=== PATIENT | male | born 1975 | race Caucasian/White ===

== ENCOUNTER 2021-03-12 07:30 | Outpatient (CLI) | payer SELFPAY ==
--- NOTE | ~2021-03-12 | US_ITS ---
EXAMINATION: US abdomen limited DATE: 03/12/2021 07:50 INDICATION: Right upper quadrant pain TECHNIQUE: Multiple grayscale and Doppler ultrasound images of the abdomen were obtained. COMPARISON: None available FINDINGS: The head and body of the pancreas are normal. The pancreatic tail is obscured by bowel gas. The liver is normal with normal echogenicity and echotexture. No surface nodularity. Normal hepatope gely flow in the main portal vein. The gallbladder is normal with no abnormal wall thickening, pericho lecystic fluid or stones. The normal common bile duct measures 2 mm. There was no sonographic Forrest sign. IMPRESSION: 1. Normal sonographic study of the gallbladder. Reviewed, dictated and finalized at location A.
== END 2021-03-12 07:31 | disposition home or self-care (01) ==
PROVIDERS: PCP Family Medicine; Visit Provider Family Medicine
DX: E80.6 Other disorders of bilirubin metabolism (principal); R17 Unspecified jaundice
CPT/HCPCS: 76705

== ENCOUNTER 2022-04-29 01:21 | Day surgery (SDC) | payer SELFPAY ==
[2022-04-19 15:30] VITALS: BMI 22.4
[2022-04-29 07:41] VITALS: BP 106/75; PULSE 63; RESP 20; TEMP 35.5; O2SAT 100; BMI 22.1
[2022-04-29] MEDS: LACTATED RINGERS 1,000 ML 150 ML IV CONT (07:54)
--- NOTE | 2022-04-29 08:04 | P.PNAN_ITS ---
Anes - Initial Pre Proc Eval Procedure: Operation Date: 04/29/22 08:30 Proposed Procedures p Screening Colonoscopy - Silviano Painter MD Date/Time: 04/29/22 08:04 Surgeon: Silviano Painter MD Pre Op Diagnosis: neoplasm screening Patient Data Age: 46 Gender: M Height: 1.8 m Weight: 72 kg Last Vital Signs Temp 95.9 F L 04/29/22 07:41 Pulse 63 04/29/22 07:41 Resp 20 04/29/22 07:41 BP 106/75 04/29/22 07:41 Pulse Ox 100 04/29/22 07:41 Allergies Allergy/AdvReac Type Severity Reaction Status Date / Time No Known Allergies Allergy Mild Verified 04/29/22 07:40 Home Medications Medication Instructions Recorded Confirmed Type atorvastatin 10 mg tablet See Rx Instructions .Route 04/19/22 04/29/22 Rx .COMPLEX #90 tabs Patient hx anesthesia problems: none Family hx anesthesia problems: none Results Review: All pre-operative results and documents have been reviewed as part of the pre-o perative evaluation. [facility] Family History Family History Father Family history of elevated blood lipids Acute myocardial infarction Family history of coronary artery disease Social History Social History (Updated 02/18/22 @ 15:05 by Tosha Bailey MA) Smoking status: Never smoker Alcohol intake: current Alcohol use details: on occasion Substance use: never Substance use type: does not use Living arrangements: with family Gender identity (if verbalized by the patient): Male Spiritual care concerns: No Agree to blood products: Yes Anes - Eval Final PreProcedure Day of Procedure 04/29/22 08:04 Patient weight: normal Heart: regular rate and rhythm Lungs: clear to auscultation Airway: Mallampati scale Neurological: alert and oriented Last oral intake: >/= 8 hours ASA classification: II Emergent: no Anesthetic plan: proceed Anesthesia type and monitoring: general GIVS and standard monitoring Results Review: All pre-operative results and documents have been reviewed as part of the pre- operative evaluation. Informed Consent: The patient's anesthetic plan and its attendant risks and benefits were discussed with the patient/family/POA. Questions were solicited and answers provided to the satisfaction of the patient/family/POA.
--- NOTE | 2022-04-29 08:17 | PM.HPGS ---
History of Present Illness History of Present Illness Consent: Risks, benefits, and alternatives have been discussed and questions answered. Patient agrees to proceed with procedure. Chief complaint: neoplasm screening Narrative: Anibal Odom is a 46 year old male here for first screening colonoscopy Review of Systems Constitutional: Constitutional: Denies headache(s) and Denies weakness Eyes: Eyes: Denies blurry vision ENT: Reports Normal hearing present, Denies headache(s) and Denies neck pain Cardiovascular: Cardiovascular: Denies chest pain and Denies dyspnea Respiratory: Respiratory: Denies dyspnea Gastrointestinal: Gastrointestinal: Reports no additional gastrointestinal complaints Genitourinary: Genitourinary: Denies dysuria Musculoskeletal: Musculoskeletal: Denies neck pain Integumentary/Breasts: Skin/Breast: Denies dry skin Neurologic: Reports Normal hearing present, Denies headache(s) and Denies weakness Psychiatric: Psychiatric: Denies anxiety Endocrine: Endocrine: Denies change in body appearance Hematologic/Lymphatic: Hematologic/Lymphatic: Denies easy bleeding Allergic/Immunologic: Allergic/Immunologic: Denies urticaria [facility] Family History Family History Father Family history of elevated blood lipids Acute myocardial infarction Family history of coronary artery disease Social History Social History (Updated 02/18/22 @ 15:05 by Tosha Bailey MA) Smoking status: Never smoker Alcohol intake: current Alcohol use details: on occasion Substance use: never Substance use type: does not use Living arrangements: with family Gender identity (if verbalized by the patient): Male Spiritual care concerns: No Agree to blood products: Yes Meds Home Medications and Allergies Home Medications Medication Instructions Recorded Confirmed Type atorvastatin 10 mg tablet See Rx Instructions .Route 04/19/22 04/29/22 Rx .COMPLEX #90 tabs Allergies Allergy/AdvReac Type Severity Reaction Status Date / Time No Known Allergies Allergy Mild Verified 04/29/22 07:40 Vital Signs Vital Signs - 24 hr 04/29/22 07:41 Temperature 95.9 F L Pulse Rate 63 Respiratory Rate 20 Blood Pressure 106/75 Pulse Oximetry 100 Exam Const: General: comfortable and no acute distress HENMT: Face/Nose/Sinus: Normal nares present Eyes: General: appearance normal, both eyes and all related structures Neck: Neck: no JVD Resp: Auscultation: clear to auscultation bilaterally Cardio: Rate: regular rate Rhythm: regular rhythm GI: Inspection: non-distended GI Palp: Yes Soft to palpation Skin: General skin exam: normal color Neuro: General: gait normal Speech: normal speech Extrem: General: normal to inspection Psych: Mental Status: mental status grossly normal Assessment and Plan Assessment and plan (1) Screening for colon cancer: Code(s): Z12.11 - Encounter for screening for malignant neoplasm of colon Status: Acute Assessment and Plan: colonoscopy
[2022-04-29 08:39] VITALS: BP 95/62; PULSE 66; RESP 20; O2SAT 99
[2022-04-29 08:49] VITALS: BP 106/77; PULSE 64; RESP 20; O2SAT 100
[2022-04-29 08:59] VITALS: BP 106/74; PULSE 57; RESP 16; O2SAT 100
== END 2022-04-29 09:11 | disposition home or self-care (01) ==
PROVIDERS: PCP Family Medicine; Visit Provider Internal Medicine Gastroenterology
PROC: 0DJD8ZZ Inspection of Lower Intestinal Tract, Via Natural or Artificial Opening Endoscopic (ICD-10-PCS; CPT 45378; principal; 2022-04-29 08:30)
DX: Z12.11 Encounter for screening for malignant neoplasm of colon (principal)
CPT/HCPCS: 45378; J2704; J7120

== ENCOUNTER 2024-03-19 09:05 | Outpatient (CLI) | payer SELFPAY ==
--- NOTE | ~2024-03-19 | MR_ITS ---
EXAMINATION: MR lumbar spine wo con DATE: 03/19/2024 09:43 INDICATION: Low back pain. TECHNIQUE: Magnetic resonance imaging (MRI) of the lumbar spine was performed without intravenous con trast. Sequences included sagittal T2-weighted FSE, sagittal T2-weighted FS FSE, sagittal T1-weighted FSE, and axial T2-weighted FSE. COMPARISON: None FINDINGS: There is 3 degrees levocurvature of lumbar spine. Vertebral body heights are normal. L5 is a transitional segment. There is mildly decreased disc height at L3-L4. The distal spinal cord signal intensity is normal. The conus medullaris is at L1. The following disc levels are specifically discu ssed: L1-L2: The disc does not extend beyond the endplate margin. There is mild bilateral facet joint osteo arthritis. There is no neural foraminal stenosis. There is no central canal stenosis. L2-L3: The disc does not extend beyond the endplate margin. There is mild bilateral facet joint osteo arthritis. There is no neural foraminal stenosis. There is no central canal stenosis. L3-L4: The disc is bulging and has an annular fissure. There is mild bilateral facet joint osteoarthr itis. There is mild bilateral neural foraminal stenosis. There is mild central canal stenosis. L4-L5: The disc is bulging and has an annular fissure. There is mild bilateral facet joint osteoarthr itis. There is mild bilateral neural foraminal stenosis. There is mild central canal stenosis. L5-S1: The disc does not extend beyond the endplate margin. There is no facet joint hypertrophy. Ther e is no neural foraminal stenosis. There is no central canal stenosis. IMPRESSION: 1. Mild lumbar spondylosis. Reviewed, dictated and finalized at location A. IMPRESSION: 1. Mild lumbar spondylosis.
== END 2024-03-19 09:06 | disposition home or self-care (01) ==
PROVIDERS: PCP Family Medicine; Visit Provider Family Medicine
DX: M47.896 Other spondylosis, lumbar region (principal)
CPT/HCPCS: 72148

== ENCOUNTER 2024-06-06 15:30 | Outpatient (RCR) | payer SELFPAY ==
--- NOTE | 2024-04-02 16:10 | OPREHPOC ---
Outpatient Therapy Plan of Care This is a Multidisciplinary Plan of Care that may contain components documented by all disciplines (PT, OT, and ST.) PT Problem 1 PT Problem #1 Knowledge Deficit PT Goal 1 Goal / Goal Update Pt to be IND with issued HEP Target Visit 6 PT Problem 2 PT Problem #2 Pain PT Goal 1 Goal / Goal Update Pt to report being able to sit on the couch for 90 mins to be able to watch a movie with his family. Target Visit 6 PT Goal 2 Goal / Goal Update Pt to report 75% improvement in overall symptoms. Target Visit 6 PT Problem 3 PT Problem #3 Impaired Functional Mobil PT Goal 1 Goal / Goal Update Pt to demonstrate 30lb functional lift and carry without an increase in symptoms. Target Visit 6
--- NOTE | 2024-04-02 16:10 | PTOPEVAL1 ---
Assessment and note entered by Dante Saul, PT, DPT Evaluation Information Assessment Status Evaluation Diagnosis low back pain ICD-10 Condition Codes (PT) M54.6,Pain in low back M54.50 Subjective Information Pt states in August he was playing tennis and he stepped down hard on his L side and now has a moderate amount of R sided low back pain. He states now that he has had the pain for 6+ months he is starting to get pain in his middle back and shoulders at times. Reports its hard to get comfortable. Pain feels better in standing. Can still bike and play tennis with a tolerable amount of discomfort. Declines radicular pain. He states he likes to jog but has not done any of this out of fear of worsening the back. Reports R sided pain right about his posterior hip. Reported Pain Level Pain Score 2: Self Report Assessment PT Clinical Summary Pt presents to therapy today with a diagnosis of low back pain, today he demonstrates pelvic asymmetries which are likely causing the pain he reports with sitting and bending. His alignment was corrected today with muscle energy techniques. 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 Skilled therapy services are indicated to improve core strength, to maintain neutral alignment, and to educate of body mechanics with functional tasks. Plan of Care Interventions Electrical Stimulation,Gait Training,Hot Pack/Cold Pack,Manual Therapy,Neuro Re-education,Patient/ Caregiver Educati,Therapeutic Activities, Therapeutic Exercise PT Services Indicated Yes Treatment Frequency and 1x/wk for 6 visits Duration These treatments will address the objective and functional deficits as defined above. The patient will be advanced safely and appropriately in order for the patient to progress towards his/her prior level of function. Additional exercises will be introduced and as well as a comprehensive home exercise program upon discharge, if needed, ?to ensure carryover of functional gains achieved in the clinic. This treatment plan has been reviewed and agreement upon by the patient.
--- NOTE | 2024-04-23 15:22 | PCPTNOTE ---
Patient canceled therapy this date 04/23/24 per request.
--- NOTE | 2024-04-30 16:13 | PCPTNOTE ---
Patient called to cancel with no reason given.
== END 2024-07-01 23:59 | disposition home or self-care (01) ==
LOC: ANHGOSHPT 15:30
PROVIDERS: PCP Family Medicine; Visit Provider Family Medicine
DX: M54.6 Pain in thoracic spine (principal); M47.816 Spondylosis without myelopathy or radiculopathy, lumbar region
CPT/HCPCS: 97110; 97140; 97161; 97530

== ENCOUNTER 2024-07-18 15:16 | Outpatient (RCR) | payer SELFPAY ==
--- NOTE | 2024-07-18 15:49 | OPREHPOC ---
Outpatient Therapy Plan of Care This is a Multidisciplinary Plan of Care that may contain components documented by all disciplines (PT, OT, and ST.) PT Problem 1 PT Problem #1 Knowledge Deficit PT Goal 1 Goal / Goal Update Pt to be IND with issued HEP Target Visit 6 Progress Met PT Problem 2 PT Problem #2 Pain PT Goal 1 Goal / Goal Update Pt to report being able to sit on the couch for 90 mins to be able to watch a movie with his family. Target Visit 6 Progress Met PT Goal 2 Goal / Goal Update Pt to report 75% improvement in overall symptoms. Target Visit 6 Progress Met PT Problem 3 PT Problem #3 Impaired Functional Mobility PT Goal 1 Goal / Goal Update Pt to demonstrate 30lb functional lift and carry without an increase in symptoms. Target Visit 6 Progress Met
--- NOTE | 2024-07-18 15:49 | PTOPDC ---
Assessment and note entered by Dante Saul, PT, DPT Evaluation Information Assessment Status Discharge Diagnosis low back pain ICD-10 Condition Codes (PT) Pain in Thoracic Spine M54.6,Pain in low back M54. 50 Subjective Information Pt states he has been trying to be very diligent with his exercises and stretching. He states he is still having still having some upper back and neck pain at times. States his low back feels about 80% better. Reported Pain Level Pain Score 0: Self Report Assessment PT Clinical Summary Pt has completed 5 visits of skilled therapy services to treat his acute back pain. He has met or progressed well towards all of his therapy goals and no longer requires skilled services. He will be discharged at this time.
== END 2024-07-19 08:13 | disposition home or self-care (01) ==
LOC: ANHGOSHPT 15:16
PROVIDERS: PCP Family Medicine; Visit Provider Family Medicine
DX: M54.6 Pain in thoracic spine (principal); M47.816 Spondylosis without myelopathy or radiculopathy, lumbar region
CPT/HCPCS: 97110; 97140

== ENCOUNTER 2025-02-08 00:13 | Emergency (ER) | payer SELFPAY ==
--- NOTE | ~2025-02-08 | CT_ITS ---
EXAMINATION: CT abdomen pelvis wo con DATE: 02/08/2025 02:36 INDICATION: Right lower quadrant abdominal pain and right flank pain. TECHNIQUE: Computed tomography (CT) of the abdomen and pelvis was performed without intravenous contr ast. Automated exposure control and iterative reconstruction technique were employed. The dose-length product was 196.22 mGy-cm. COMPARISON: None FINDINGS: Lung bases are clear. Heart size is normal. Small amount of atherosclerotic coronary artery calcific location. No pericardial or pleural effusion. Liver, gallbladder, spleen, pancreas and bilateral adre nal glands are normal. 2 cm cyst at the upper pole the left kidney. Bilateral nephrolithiasis with 3 mm stone at the mid right ureter resulting in mild right hydronephrosis and mild stranding about the proximal right ureter. There are 3 small nonobstructing stones at the lower pole the left kidney jose martin uring up to 3 to 4 mm. No left-sided ureteral stones or left hydronephrosis. Bladder is normal. No bowel obstruction. The appendix is not visualized. No pericecal inflammatory change to suggest acu te appendicitis. No free intraperitoneal gas or fluid. No pathologically enlarged abdominal or pelvic lymphadenopathy. 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 IMPRESSION: 1. Bilateral nephrolithiasis with 3 mm at least partially obstructing mid right ureteral stone with m ild right hydronephrosis. Reviewed, dictated and finalized at location A. IMPRESSION: 1. Bilateral nephrolithiasis with 3 mm at least partially obstructing mid right ureteral stone with mild right hydronephrosis.
--- OUTSIDE RECORDS SUMMARY | 2025-02-08 00:15 | XMS_ITS | Clinical Summary ---
Author Organization [facility] Virtual Care Address [address] [place] [phone] Phone Care Team Providers Care Theatrical Variety Agent Name Role Phone Maritza Garcia DO Primary Care Provider [phone] Allergies No known active allergies Medications No known medications Active Problems No known active problems Encounters Date Type Department Care Team Description 11/15/2024 11:33 AM CDT - 11/15/2024 11:59 PM CDT Hospital Encounter [facility] [address] [place] [id number] Chronic right-sided low back pain without sciatica; Myofascial pain Discharge Disposition: Discharge to home or self care 11/15/2024 10:00 AM CDT Office Visit [facility] Orthopaedic Surgery [address] [place] [address] 2nd Floor [address] [place] [phone] Paolo Campbell MD Chronic right-sided low back pain without sciatica (Primary Dx); Myofascial pain 11/15/2024 Results Follow-Up [facility] Orthopaedic Surgery [address] [place] [address] Floor [address] [place] [phone] Paolo Campbell MD X-ray cervical spine complete 4 or 5 vw from Last 3 Months Social History Tobacco Use Types Packs/Day Years Used Date Smoking Tobacco: Never Assessed Sex and Gender Information Value Date Recorded Sex Assigned at Not on file Legal Sex Male 2:39 PM CDT Gender Identity Not on file Sexual Orientation Not on file Obstetrics History Last Filed Vital Signs Vital Sign Reading Time Taken Comments Blood Pressure - - Pulse - - Temperature - - Respiratory Rate - - Oxygen Saturation - - Inhaled Oxygen Concentration - - Weight 72.6 kg (160 lb) 11/15/2024 10:04 AM CDT Height 180.3 cm (5' 11) 11/15/2024 10:04 AM CDT Body Mass Index 22.32 11/15/2024 10:04 AM CDT Plan of Treatment Health Maintenance Due Date Last Done Comments Colon Cancer Screening-Colonoscopy 1975 Depression Screening 1975 Hepatitis C Screening 1975 Hepatitis B Screening 08/24/1993 Regular Well Visit/Exam 18-64 08/24/1993 Influenza Vaccine (#1) 2025 4, 05/03/2023, 04/26/2022, Additional history exists DTaP/Tdap/Td Vaccine (7 - Td or Tdap) 03/04/2030 03/04/2020, 02/15/1990, 04/21/1981, Additional history exists Pneumococcal vaccine <65 Aged Out No longer eligible based on patient's age to complete this topic Procedures Procedure Name Priority Date/Time Associated Diagnosis Comments XR SPINE CERVICAL COMPLETE 4 OR 5 VW Schedule Routine, Read Routine (OP Routine) 11/15/2024 11:40 AM CDT Chronic right-sided low back pain without sciatica Myofascial pain from Last 3 Months Results * X-ray cervical spine complete 4 or 5 vw (11/15/2024 11:40 AM CDT) Anatomical Region Laterality Modality Spine N/A Computed Radiogr aphy 11/15/2024 11:5 9 AM CDT Impressions 11/15/2024 11:59 AM CDT Mild C4-C5 degenerative disc disease. Electronically signed by: Jessee Tolentino M.D. Narrative 11/15/2024 11:59 AM CDT EXAMINATION: XR SPINE CERVICAL COMPLETE 4 OR 5 VW HISTORY: Neck pain FINDINGS: 4 views of the cervical spine were performed without comparison. Prevertebral soft tissues appear normal. Alignment of the cervical spine is normal. There is no listhesis with flexion or with extension. There is mild degenerative disc disease at C4-C5. Procedure Note Jessee Tolentino MD PhD - 11/15/2024 EXAMINATION: XR SPINE CERVICAL COMPLETE 4 OR 5 VW HISTORY: Neck pain FINDINGS: 4 views of the cervical spine were performed without comparison. Prevertebral soft tissues appear normal. Alignment of the cervical spine is normal. There is no listhesis with flexion or with extension. There is mild degenerative disc disease at C4-C5. IMPRESSION: Mild C4-C5 degenerative disc disease. Electronically signed by: Jessee Tolentino M.D. us Paolo Campbell MD IMG XR PROCEDURES Final Res ult from Last 3 Months Care Teams Theatrical Variety Agent Relationship Specialty Start Date End Date Mairtza Garcia DO [facility] [address] [place] [id number] PCP - General Family Medicine 11/13/24
--- OUTSIDE RECORDS SUMMARY | 2025-02-08 00:15 | XMS_ITS | Clinical Summary ---
Author Organization [facility] Address [address] [place] [address] Care Team Providers Care Reel And Rewinder Operator Name Role Phone Unavailable Primary Care Provider Unavailabl e Source Comments [facility],non-owned Affiliates and Associated Physician Practices is amultiple site organization consisting of ambulatory clinics and hospital sitesin [place], [place], [place] and [place]. This disclosure is being madepursuant to the Care Everywhere program and may not contain all information available regarding this patient. Last updated 18.[facility] Allergies No known active allergies Immunizations Immunization Administration Dates Next Due INFLUENZA VACCINE, QUADR. (F LUZONE; FLULAVAL; FLUARIX; AFLURIA QUADRIVALENT; 6MO+), 0.5 ML (IIV4) 05/08/2018 Social History Tobacco Use Types Packs/Day Years Used Date Smoking Tobacco: Never Assessed Sex and Gender Information Value Date Recorded Sex Assigned at Not on file Legal Sex Male 9:19 AM [employer] Gender Identity Not on file Sexual Orientation Not on file Plan of Treatment Health Maintenance Due Date Last Done Comments COLOGUARD (AGES 45-75) - COL ON CA SCREENING 1975 COLON MONITORING 1975 COLONOSCOPY - COLON CA SCREENING 1975 CT COLONOGRAPHY - COLON CA SCREENING 1975 Colorectal Cancer Screening 1975 FIT - COLON CA SCREENING 1975 FLEX SIG - COLON CA SCREENING 1975 LIPID TESTING 1975 HIV SCREENING 08/24/1990 HEPATITIS C SCREENING 08/20/1993 DTAP/TDAP/TD VACCINES (1 - Tdap) 08/24/1994 HEPATITIS B VACCINE (1 of 3 - 19+ 3-dose series) 08/24/1994 COVID-19 VACCINE (2023-2 5 season) 2024 DEPRESSION SCREENING 06/26/2024 INFLUENZA VACCINE (#1) 2025 05/08/2018 ZOSTER VACCINE (1 of 2) 08/24/2025 HIB VACCINE Aged Out No longer eligi ble based on patient's age to complete this topic HPV VACCINE Aged Out No longer eligi ble based on patient's age to complete this topic MENINGOCOCCAL (Group B) VACC INE SHARED DECISION-MAKING Aged Out No longer eligibl e based on patient's age to complete this topic MENINGOCOCCAL GROUPS A/C/Y/W VACCINE Aged Out No longer eligible b ased on patient's age to complete this topic Insurance [employer]
[2025-02-08 00:16] VITALS: BP 134/73; PULSE 65; RESP 18; TEMP 36.5; O2SAT 100
--- NOTE | 2025-02-08 01:06 | ED_ITS ---
HPI - Male Genitourinary General Chief complaint: Urogenital-Male Stated complaint: flank pain Time Seen by Provider: 02/08/25 00:57 History of Present Illness HPI Narrative: 49-year-old otherwise healthy male presenting to the emergency department with right flank pain from his right lower quadrant radiating straight through to his right flank. Intermittent for last 2 days and constant now for last few hours. Denies any dysuria urinary complaints. No fever, chills, traumatic injuries. No testicular pain or swelling. Endorses nausea and 1 episode of vomiting from severe pain. No abdominal surgical history. He states he has had right hip problems before and currently undergoing physical therapy but states that this area of pain is unrelated and is made exacerbated by lying flat and certain positions. Has tried some Aleve without any relief. Related Data Allergies Allergy/AdvReac Type Severity Reaction Status Date / Time No Known Allergies Allergy Mild Verified 02/08/25 00:19 Review of Systems 2 Review of Systems: As reviewed above in HPI [facility] Family History Family History Father Family history of elevated blood lipids Acute myocardial infarction Family history of coronary artery disease Social History Social History Smoking status: Never smoker Alcohol intake: current Drinks per week: 3 Alcohol use details: on occasion Substance use: never Substance use type: does not use Living arrangements: with family Occupation/Education: occupation Gender identity (if verbalized by the patient): Male Spiritual care concerns: No Agree to blood products: Yes Exam 2 Narrative: GENERAL: [Well-appearing, well-nourished, and in no acute distress.] HEAD: [Normocephalic, atraumatic.] EYES: [PERRLA and EOMI.] ENT: Nares clear, no rhinorrhea or epistaxis. Mucous membranes moist. NECK: Supple. CHEST: Symmetric chest rise, no respiratory distress HEART: [Regular rate and rhythm]. No murmur heard. [Normal peripheral pulses.] ABDOMEN: [Soft, nondistended], right flank/CVA tenderness and right lower quadrant tenderness to palpation, [No rigidity or guarding] EXTREMITIES: Normal range of motion. [No edema.] SKIN: Warm, dry, no rash. NEURO: [No focal deficits]. Alert and oriented [x3.] PSYCH: [Normal mood and affect.] Course Vital Signs Vital signs: Vital Signs Temperature 36.5 C 02/08/25 00:16 Pulse Rate 65 02/08/25 00:16 Respiratory Rate 18 02/08/25 00:16 Blood Pressure 134/73 02/08/25 00:16 Pulse Oximetry 100 02/08/25 00:16 Oxygen Delivery Room Air 02/08/25 00:16 Temperature 36.5 C 02/08/25 01:15 Pulse Rate 65 02/08/25 01:15 Respiratory Rate 18 02/08/25 01:15 Blood Pressure 134/73 02/08/25 01:15 Pulse Oximetry 100 02/08/25 01:15 Oxygen Delivery Room Air 02/08/25 00:16 MDM - Male Genitourinary MDM Narrative Medical decision making narrative: 49-year-old otherwise healthy male presenting to the emergency department with right flank pain from his right lower quadrant radiating straight through to his right flank. Intermittent for last 2 days and constant now for last few hours. Denies any dysuria urinary complaints. No fever, chills, traumatic injuries. No testicular pain or swelling. Endorses nausea and 1 episode of vomiting from severe pain. No abdominal surgical history. He states he has had right hip problems before and currently undergoing physical therapy but states that this area of pain is unrelated and is made exacerbated by lying flat and certain positions. Has tried some Aleve without any relief. Patient has reproducible tenderness in the right flank and right lower quadrant. Normal vital signs. He appears uncomfortable and pacing in the room with 1 episode of pain causing nausea vomiting. No GI or symptoms otherwise. Suspicion for kidney stone, renal colic, urinary tract infection, pyelonephritis, less likely appendicitis or intra-abdominal abscess or other infectious process. Low suspicion musculoskeletal etiology. CT scan of the abdomen pelvis without contrast obtained for stone protocol, given morphine and Zofran as well as fluids for symptoms, laboratory studies and urinalysis ordered. Patient did require additional morphine for analgesia. Urinalysis has some white blood cells but no bacteria evident. Predominantly red blood cells consistent with kidney stone. CT scan shows a 3 mm calculus in the mid ureter on the right side. Small left-sided renal calcifications without any hydronephrosis. Patient had appropriate response to treatments. He is afebrile with normal vital signs. Ambulatory without difficulty. I discussed next steps with the patient including initiation of medications such as Flomax, pain control medications and hydration. He was given prescriptions for Flomax, Toradol, oxycodone and Zofran as needed. Given the 1+ leukocyte esterase with white blood cells we did elect to treat this with antibiotics although he has no bacteria. Culture will be sent. He will follow-up with Urology and given return precautions. Patient is safe for discharge at this time and given 1st dose medications prior to discharge. Medical Records Attestation: I reviewed the patient's medical records. Lab Data Attestation: I reviewed the patient's lab results. 02/08/25 01:10 02/08/25 01:10 Labs: Lab Results 02/08/25 02/08/25 Range/Units 01:10 01:12 WBC 11.0 H (4.5-10.0) K/mm3 RBC 4.66 (4.6-6.20) M/mm3 Hgb 14.2 (14.0-18.0) g/dL Hct 42.0 (42.0-52.0) % MCV 90.1 (80-100) fl MCH 30.5 (26-34) pg MCHC 33.8 (32-36) g/dl RDW 13.1 (11.5-14.5) % Plt Count 184 (150-375) k/mm3 MPV 10.3 (7.4-10.4) fl Immature Gran % (Auto) 0.3 (0-0.5) % Neut % (Auto) 80.4 H (45.5-73.1) % Lymph % (Auto) 12.5 L (18.3-44.2) % [place] % (Auto) 5.9 (2.6-8.5) % Eos % (Auto) 0.5 (0-4.4) % Baso % (Auto) 0.4 (0.2-1.2) % Lymph # (Auto) 1.38 (0.9-3.2) K/mm3 [place] # (Auto) 0.7 H (0.1-0.6) K/mm3 Eos # (Auto) 0.1 (0-0.3) K/mm3 Baso # (Auto) 0.0 (0.0-0.1) K/mm3 Abs Immat Gran (auto) 0.03 (0.00-0.031) K/mm3 Absolute Neuts (auto) 8.9 H (1.3-6.7) K/mm3 Absolute Nucleated RBC 0.000 (0.0-0.012) K/mm3 Nucleated RBC % 0.0 (0.0-0.2) % Sodium 137 (137-145) mmol/L Potassium 3.8 (3.4-5.0) mmol/L Chloride 101 (98-107) mmol/L Carbon Dioxide 27 (22-30) mmol/L Anion Gap 9 (4-12) mmol/L BUN 18 (9-20) mg/dL Creatinine 1.27 (0.7-1.3) mg/dL Estim Creat Clear Calc 66 ml/min Estimated GFR 60 (59 - ) Glucose 118 H (65-110) mg/dL Calcium 9.6 (8.4-10.2) mg/dL Total Bilirubin 2.1 H (0.2-1.3) mg/dL AST 36 (17-59) U/L ALT 33 (6-50) U/L Alkaline Phosphatase 71 (38-126) U/L Total Protein 7.5 (6.3-8.2) g/dL Albumin 4.6 (3.5-5.1) g/dL Urine Color Dark yellow (Yellow) Urine Appearance Cloudy H (Clear) Urine pH 5.0 (5.0-9.0) Ur Specific [place] 1.026 (1.001-1.035) Urine Protein 2+ H (Negative) mg/dL Urine Glucose (UA) Negative (Negative) mg/dL Urine Ketones 1+ H (Negative) mg/dL Ur Blood (Man) 3+ H (Negative) Urine Nitrate Negative (Negative) Urine Bilirubin Negative (Negative) Urine Urobilinogen 1.0 (<2.0) mg/dL Leukocyte Esterase Rfl 1+ H (Negative) WILVER/UL Urine RBC >100 H (0-2) /hpf Urine WBC 11-20 H (0-3) /hpf Ur Squamous Epith Cells None seen (Few) /hpf Urine Bacteria None seen /hpf Urine Casts 0-2 Imaging Data Attestation: I personally reviewed and interpreted this imaging study as follows: My impression: 3 mm kidney stone right-sided. Discharge Plan Discharge Clinical Impression: Calculus of right ureter Patient Disposition: Home Condition: Stable Instructions: Antibiotic Form, Kidney Stones (ED), How to Strain Your Urine (ED), Flank Pain (ED) Additional Instructions: You have a 3 mm kidney stone in the right mid ureter. This is causing her symptoms. No signs of any ongoing infection but we will treat you with a prophylactic course of antibiotics given some white blood cells in your urine. We will send you with Flomax to help dilate the urinary system, Toradol and oxycodone as pain management, Zofran as needed if you have any nauseousness, Keflex for antibiotics twice daily for several days. Symptoms should subside as you pass a stone over the next several days. Avoid dehydration and rehydrate adequately, follow-up with your primary care provider and be referred urologist if issues. Return with any emergent concerns. Patient Language: Faroese Prescriptions: New ketorolac 10 mg tablet 10 mg PO Q8H PRN (Reason: pain) 5 Days Qty: 20 0RF Rx Instructions: maximum total duration of 5 days from all oral, intranasal, or parenteral formulations tamsulosin [Flomax] 0.4 mg capsule 0.4 mg PO DAILY Qty: 20 0RF cephalexin 500 mg capsule 500 mg PO Q12H 5 Days Qty: 10 0RF ondansetron 4 mg tablet,disintegrating 4 mg PO Q8H PRN (Reason: nausea and vomiting) Qty: 10 0RF oxycodone 5 mg tablet 5 mg PO Q8H PRN (Reason: pain) Qty: 10 0RF No Action atorvastatin 10 mg tablet See Rx Instructions .ROUTE .COMPLEX Qty: 90 1RF Dose Instruction: TAKE 1 TABLET BY MOUTH EVERY DAY Rx Instructions: TAKE 1 TABLET BY MOUTH EVERY DAY Follow-up/Referrals: Vaibhav Hammond MD [Physician] - 3 Days (Right ureteral stone) Maritza Garcia DO [Primary Care Provider] - Time of Disposition: 05:34
[2025-02-08 01:15] VITALS: BP 134/73; PULSE 65; RESP 18; TEMP 36.5; O2SAT 100
--- OUTSIDE RECORDS SUMMARY | 2025-02-08 01:18 | XMS_ITS | Clinical Summary ---
Author Organization [facility] Address [address] [place] [address] Care Team Providers Care Oil Rig Roughneck Name Role Phone Unavailable Primary Care Provider Unavailabl e Source Comments [facility],non-owned Affiliates and Associated Physician Practices is amultiple site organization consisting of ambulatory clinics and hospital sitesin [place], [place], [place] and [place]. This disclosure is being madepursuant to the Care Everywhere program and may not contain all information available regarding this patient. Last updated 18.[facility] Allergies No known active allergies Immunizations Immunization Administration Dates Next Due INFLUENZA VACCINE, QUADR. 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
--- OUTSIDE RECORDS SUMMARY | 2025-02-08 01:18 | XMS_ITS | Clinical Summary ---
Author Organization [facility] Address [address] [place] [phone] Phone Care Team Providers Care Plaster Machine Operator Name Role Phone Maritza Garcia DO Primary Care Provider +1- [phone] Allergies No known active allergies Medications No known medications Active Problems No known active problems Encounters Date Type Department Care Team Description 11/15/2024 11:33 AM CDT - 11/15/2024 11:59 PM CDT Hospital Encounter [facility] [address] [place] [id number] Chronic right-sided low back pain without sciatica; Myofascial pain Discharge Disposition: Discharge to home or self care 11/15/2024 10:00 AM CDT Office Visit [facility] [address] [place] [address] [address]nd Floor [address] [place] [phone] Paolo Campbell MD Chronic right-sided low back pain without sciatica (Primary Dx); Myofascial pain 11/15/2024 Results Follow-Up [facility] [address] [place] [address] Floor [address] [place] [phone] Paolo Campbell MD X-ray cervical spine complete [...] ult from Last 3 Months Care Teams Plaster Machine Operator Relationship Specialty Start Date End Date Maritza Garcia DO [facility] [facility] [facility] [address] [place] [phone] PCP - General Family Medicine 11/13/24
[2025-02-08] MEDS: LACTATED RINGERS 1,000 ML 999 ML IV CONT (01:19)
[2025-02-08] MEDS: ONDANSETRON INJ 4 MG/2 ML VIAL IV PUSH (01:19)
[2025-02-08] MEDS: MORPHINE SULFATE (*CRX) 4 MG/ML INJ IV PUSH ×2 (01:19→04:50)
[2025-02-08 01:22] LABS: Hematocrit 42.0 % (42.0-52.0); Hemoglobin 14.2 g/dL (14.0-18.0); Immature Granulocyte Percent A 0.3 % (0-0.5); Lymphocytes Absolute Auto 1.38 K/mm3 (0.9-3.2); Mean Corpuscular HGB Conc 33.8 g/dl (32-36); Mean Corpuscular Hemoglobin 30.5 pg (26-34); Mean Corpuscular Volume 90.1 fl (80-100); Nucleated Red Blood Cells Absolute Auto 0.000 K/mm3 (0.0-0.012); Nucleated Red Blood Cells Perc 0.0 % (0.0-0.2); Platelet Count Result 184 k/mm3 (150-375); Red Blood Count 4.66 M/mm3 (4.6-6.20); White Blood Count 11.0 K/mm3 (4.5-10.0)
[2025-02-08 01:30] LABS: Add Urine Microscopic? YES; Appearance Urine Cloudy (Clear); Glucose Urine UA Negative (Negative); Leukocyte Esterase Ur 1+ LEU/UL (Negative); Nitrate Urine Negative (Negative); Non Pathogenic Casts 0-2; Specific Grav Ur 1.026 (1.001-1.035)
[2025-02-08 02:05] LABS: Alanine Aminotransferase 33 U/L (6-50); Albumin Level 4.6 g/dL (3.5-5.1); Alkaline Phosphatase 71 U/L (38-126); Anion Gap 9 mmol/L (4-12); Aspartate Amino Transferase 36 U/L (17-59); Bilirubin,Total 2.1 mg/dL (0.2-1.3); Blood Urea Nitrogen 18 mg/dL (9-20); Calcium 9.6 mg/dL (8.4-10.2); Carbon Dioxide 27 mmol/L (22-30); Chloride 101 mmol/L (98-107); Estimated CRCL calculation 66 ml/min; Estimated Glomerular Filt Rate 60; Glucose 118 mg/dL (65-110); Potassium 3.8 mmol/L (3.4-5.0); Sodium 137 mmol/L (137-145); Total Protein 7.5 g/dL (6.3-8.2)
--- NOTE | 2025-02-08 04:47 | PC.NURSE ---
alfredo pyle 4mg morphine iv push x 1
[2025-02-08] MEDS: TAMSULOSIN HCL 0.4 MG CAPSULE PO (05:44)
[2025-02-08] MEDS: CEPHALEXIN 500 MG CAPSULE PO (05:44)
[2025-02-08] MEDS: oxyCODONE HCL (*CRX) 5 MG TAB IR PO (05:46)
== END 2025-02-08 05:45 | disposition home or self-care (01) ==
PROVIDERS: Emergency Provider Student in an Organized Health Care Education/Training Program; PCP Family Medicine
DX: N13.2 Hydronephrosis with renal and ureteral calculous obstruction (principal)
CPT/HCPCS: 36415; 74176; 80053; 81001; 85025; 87086; 96361; 96374; 96375; 96376; 99284; A9270; J2270; J2405; J7120

== ENCOUNTER 2025-02-12 08:56 | Outpatient (CLI) | payer SELFPAY ==
--- NOTE | ~2025-02-12 | XR_ITS ---
EXAM/PROCEDURE: XR abdomen/kub 1V - 02/12/2025 9:20 CDT HISTORY: 49 years old Male with R ureteral stone COMPARISON: None available. TECHNIQUE: AP view(s) of the abdomen. FINDINGS: The bowel gas pattern is normal. There is no evidence for obstruction. Moderate stool burden. No large radiopaque calculus seen. No free intraperitoneal air is identified on this supine radiograph. The visualized soft tissue shadows are unremarkable. No gross bony abnormalities are seen. Visualized portions of lung bases are clear. IMPRESSION: No acute process. Reviewed, dictated and finalized at location A. IMPRESSION: No acute process.
== END 2025-02-12 08:57 | disposition home or self-care (01) ==
PROVIDERS: PCP Family Medicine; Visit Provider Urology
DX: N20.1 Calculus of ureter (principal)
CPT/HCPCS: 74018

== ENCOUNTER 2025-02-17 13:47 | Outpatient (CLI) | payer SELFPAY ==
--- NOTE | ~2025-02-17 | CT_ITS ---
EXAMINATION: CT abdomen pelvis wo con DATE: 02/17/2025 14:09 INDICATION: Right ureteral stone TECHNIQUE: Computed tomography (CT) of the abdomen and pelvis was performed without intravenous contrast. The dose-length product was 308.83 mGy-cm. Automated exposure control and iterative reconstruction technique were employed. COMPARISON: CT dated 02/08/2025. FINDINGS: Lung bases unremarkable. Heart size normal. No significant pleural or pericardial effusion. Small low-density lesion of the liver, most likely benign cyst or hemangioma. The spleen, pancreas, adrenal glands are unremarkable. There are nonobstructing left renal stones. There is a 4 mm proximal right ureteral stone with mild hydronephrosis. Nonobstructive bowel gas pattern. IMPRESSION: 1. No significant change to position of 4 mm right mid ureteral stone at the L3 level. Mild hydronephrosis. 2: Nonobstructing left nephrolithiasis. Reviewed, dictated and finalized at location O.
== END 2025-02-17 13:48 | disposition home or self-care (01) ==
LOC: MICIMG 13:52
PROVIDERS: PCP Family Medicine; Visit Provider Urology
DX: N20.1 Calculus of ureter (principal)
CPT/HCPCS: 74176

== ENCOUNTER 2025-02-25 07:53 | Outpatient (CLI) | payer SELFPAY ==
--- OUTSIDE RECORDS SUMMARY | 2025-02-25 07:58 | XMS_ITS | Clinical Summary ---
Author Organization [facility] Address [address] [place] [address] Care Team Providers Care Personnel Research Scientist Name Role Phone Unavailable Primary Care Provider Unavailabl e Source Comments [facility],non-owned Affiliates and Associated Physician Practices is amultiple site organization consisting of ambulatory clinics and hospital sitesin [place], [place], [place] and [place]. This disclosure is being madepursuant to the Care Everywhere program and may not contain all information available regarding this patient. Last updated 18.[facility] Allergies No known active allergies Immunizations Immunization Administration Dates Next Due INFLUENZA VACCINE, QUADR. 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
--- OUTSIDE RECORDS SUMMARY | 2025-02-25 07:58 | XMS_ITS | Clinical Summary ---
Author Organization [facility] Virtual Care Address [address] [place] [phone] Phone Care Team Providers Care Automotive Starter Repairer Name Role Phone Maritza Garcia DO Primary Care Provider +1- [phone] Allergies No known active allergies Medications No known medications Active Problems No known active problems Social History Tobacco Use Types Packs/Day Years [...] on patient's age to complete this topic Care Teams Automotive Starter Repairer Relationship Specialty Start Date End Date Maritza Garcia DO [facility] [facility] [address] [place] [phone] PCP - General Family Medicine 11/13/24
--- NOTE | 2025-02-25 08:02 | ECG_ITS ---
Test Date: 2025-02-25 08:07:34 Measurements Intervals [place] Rate: 57 P: -12 IA: 136 QRS: 78 QRSD: 101 T: 45 QT: 417 QTc: 406 Interpretive Statements SINUS BRADYCARDIA POSSIBLE RIGHT VENTRICULAR CONDUCTION DELAY [RSR (QR) IN V1/V2] No previous ECG available for comparison Electronically Signed On 02-25-2025 09:30:35 CDT by Miguel Frey M.D.
== END 2025-02-25 07:54 | disposition home or self-care (01) ==
PROVIDERS: PCP Family Medicine; Visit Provider Urology
DX: R00.1 Bradycardia, unspecified (principal); E78.00 Pure hypercholesterolemia, unspecified
CPT/HCPCS: 93005

== ENCOUNTER 2025-02-27 01:04 | Day surgery (SDC) | payer SELFPAY ==
[2025-02-18 13:35] VITALS: BMI 22.3
--- NOTE | 2025-02-18 13:36 | PC.NURSE ---
Report to the Outpatient Waiting Room, entrance under the green pavilion located off [facility], at time _1130_ on date _[id number]_. Planned Procedure Time: _130pm_.? Time changes happen often and if your time is changed the preop area will call you the afternoon before. - You and your visitor will be asked to self-screen and do not enter if you have any COVID symptoms. Please call surgeon if you need to reschedule. - A mask is optional within the hospital at this time. Patients may have clear liquids (water, carbonated beverages, clear teas, apple juice) until 3 hours prior to surgery with a maximum of 20 ounces. - No food from midnight until time of surgery and no smoking, or chewing tobacco (or any form of nicotine). No chewing gum, candy or mints. Take only the following medications with a SIP of water on the morning of surgery: ___If needed may take Oxycodone and or Zofran.____ DO NOT STOP ANY OF YOUR OTHER PRESCRIPTION MEDICATIONS PRIOR TO SURGERY EXCEPT THE FOLLOWING Hold all vitamins and supplements for 3 days per anesthesiologist. Medications to discontinue per physician Check with Dr Azra giang before taking any more Naproxen. Date to take last dose Please no make-up, nail vietnamese, hairspray, perfume, deodorant, or body powder the day of surgery.? No jewelry (including any body piercings) or valuables the day of surgery, leave them at home.? Please take a shower or bath the night before, or the morning of, surgery with an antibacterial soap.? Wear comfortable, loose fitting clothing.? - Jewelry must be removed prior to entering the operating room.? Rings and piercings that are not removed may be cut off. - The hospital will not accept responsibility for valuables.? - Please leave all valuables, including medications, at home the day of surgery. If you are going home after surgery, a licensed regional refrigerated cdl truck driver must drive you home.? - NO public transportation without another adult if you receive anesthesia. - We recommend that an adult stay with you for 24 hours following discharge. - We also recommend that you do not drive, make important decision, drink alcoholic beverages, or take any drugs that were not prescribed by your health care provider for at least 24 hours after your discharge time. Follow any additional instructions given to you from your surgeon. Telephone instructions given to __Anibal___and asked if any additional questions and then verbalized understanding. Patient advised to call surgeon office or pre surgery nurse liaison [phone] if any additional questions.
--- NOTE | ~2025-02-27 | CT_ITS ---
EXAMINATION: CT abdomen pelvis wo con DATE: 02/27/2025 06:31 INDICATION: Right ureteral stone positioned TECHNIQUE: Computed tomography (CT) of the abdomen and pelvis was performed without intravenous contrast. Automated exposure control and iterative reconstruction technique were employed. The dose-length product was 234.96 mGy-cm. COMPARISON: CT dated 02/17/2025 FINDINGS: Lung bases are clear. Heart size is normal. Atherosclerotic coronary artery calcification. No pericardial or pleural effusion. Liver, gallbladder, spleen, pancreas and bilateral adrenal glands are normal. Obstructing 4 mm stone in the proximal right ureter with mild right hydronephrosis. There are 4 additional nonobstructing stones in the left kidney the largest also measuring 4 mm. Bowels are unremarkable. The appendix is not visualized no pericecal inflammatory stranding to suggest acute appendicitis. The bladder is normal. No free intraperitoneal gas or fluid.. No pathologically enlarged abdominal or pelvic lymphadenopathy. Transitional sacralized L5 segment. IMPRESSION: 1. Bilateral nephrolithiasis with obstructing 4 mm stone in the proximal right ureter with mild right hydronephrosis. Reviewed, dictated and finalized at location A.
--- NOTE | ~2025-02-27 | XR_ITS ---
EXAM: XR retrograde pyelo w/stent RT - 02/27/2025 7:30 CDT History: 49 years old Male with RIGHT RETRO/STENT Fluoroscopy time: 84.9 seconds FINDINGS/ IMPRESSION: Multiple fluoroscopic images of right nephroureteral stent placement. Reviewed, dictated and finalized at location N.
--- OUTSIDE RECORDS SUMMARY | 2025-02-27 01:06 | XMS_ITS | Clinical Summary ---
Author Organization [facility] Virtual [facility] Address [address] [place] [phone] Phone Care Team Providers Care Project Admin Name Role Phone Maritza Garcia DO Primary Care Provider +1- [phone] Allergies No known active allergies Medications No [...] age to complete this topic Care Teams Project Admin Relationship Specialty Start Date End Date Maritza Garcia DO [facility] [facility] [address] [place] [phone] PCP - General Family Medicine 11/13/24
--- NOTE | 2025-02-27 06:00 | WPDHPUPDATE1 ---
History and Physical Update Update Date/Time: 02/27/25 06:00 History and Physical has been reviewed, including an updated exam of the patient. There are NO changes in the patient's condition. Risks, benefits, and alternatives have been discussed and questions answered. Patient agrees to proceed with procedure.
[2025-02-27 06:38] VITALS: BP 100/64; PULSE 60; RESP 14; TEMP 36.6; O2SAT 98; BMI 22.6
[2025-02-27] MEDS: LACTATED RINGERS 1,000 ML 30 ML IV CONT (06:45)
--- NOTE | 2025-02-27 07:07 | P.PNAN_ITS ---
Anes - Initial Pre Proc Eval Procedure: Operation Date: 02/27/25 07:30 Proposed Procedures p Cystoscopy, Right Ureteroscopy, Possible Right Retrograde Pyelogram, Possible Right Stone Extraction, Possible Right Stent Placement, Possible Holmium Laser - Jhony Oquendo MD Date/Time: 02/27/25 07:07 Surgeon: Jhony Oquendo MD Pre Op Diagnosis: right ureteral stone Patient Data Age: 49 Gender: M Height: 1.8 m Weight: 73.8 kg Last Vital Signs Temp 36.6 C 02/27/25 06:38 Pulse 60 02/27/25 06:38 Resp 14 02/27/25 06:38 BP 100/64 02/27/25 06:38 Pulse Ox 98 02/27/25 06:38 Allergies Allergy/AdvReac Type Severity Reaction Status Date / Time No Known Allergies Allergy Mild Verified 02/27/25 06:32 Home Medications ?Medication ?Instructions ?Recorded ?Confirmed ?Type atorvastatin 10 mg tablet See Rx Instructions .Route 0 12/12/24 02/18/25 Rx .COMPLEX #90 tabs ondansetron 4 mg disintegrating 4 mg PO Q8H PRN nausea and 02/08/25 02/18/25 Rx tablet vomiting #10 tabs tamsulosin 0.4 mg capsule (Flomax) 0.4 mg PO DAILY #20 caps 02/08/25 02/18/25 Rx naproxen 500 mg tablet 500 mg PO BID PRN pain #60 t abs 02/11/25 02/18/25 Rx oxycodone 5 mg tablet 5 mg PO Q8H PRN pain #10 tab s 02/11/25 02/18/25 Rx Patient hx anesthesia problems: none Family hx anesthesia problems: none Results Review: All pre-operative results and documents have been reviewed as part of the pre- operative evaluation. [facility] Family History Family History Father Family history of elevated blood lipids Acute myocardial infarction Family history of coronary artery disease Social History Social History Smoking status: Never smoker Alcohol intake: current Drinks per week: 2 Alcohol use details: on occasion Substance use: never Substance use type: does not use Living arrangements: with family Occupation/Education: occupation Gender identity (if verbalized by the patient): Male Spiritual care concerns: No Agree to blood products: Yes Anes - Eval Final PreProcedure Day of Procedure 02/27/25 07:07 Patient weight: normal Heart: regular rate and rhythm Lungs: clear to auscultation Airway: Mallampati scale class II Neurological: alert and oriented Last oral intake: >/= 8 hours ASA classification: II Emergent: no Anesthetic plan: proceed Anesthesia type and monitoring: general LMA and standard monitoring Results Review: All pre-operative results and documents have been reviewed as part of the pre- operative evaluation. Informed Consent: The patient's anesthetic plan and its attendant risks and benefits were discussed with the patient/family/POA. Questions were solicited and answers provided to the satisfaction of the patient/family/POA.
[2025-02-27] MEDS: ceFAZolin 2 GM in SODIUM CHLORIDE 0.9% IV 50 ML 100 ML IVPB (07:30)
[2025-02-27] MEDS: LIDOCAINE 2% GEL UROJET 10 ML PKG MUCOUS MEM (07:41)
--- NOTE | 2025-02-27 08:00 | S_PTH ---
PATIENT: Anibal Odom LOC: [facility] U#:[id number] AGE/SX: 49/M ROOM: RE02/27/[address]: Jhony Oquendo MD : 1975 BED: DIS: 02/27/2025 SPEC #: [id number] RECD: 02/27/25 10:10 STATUS: SUSAN REQ #: [id number] NICOLE: 02/27/25 08:[address]: Jhony Oquendo DEPT: [facility] Surgical RECD BY: Annie Núñez ENTERED: 02/27/25 10:10 SP TYPE: Surgical OTHR DR: Maritza Garcia, Tissues: A - Stone Procedures: Gross Exam Level 1 Crystalline Analysis
[2025-02-27 08:14] VITALS: BP 93/60; PULSE 62; RESP 12; TEMP 36.6; O2SAT 100
--- NOTE | 2025-02-27 08:26 | W.PM.PROC2 ---
Procedure Note - Detailed Date of Procedure 02/27/25 Pre-op Diagnosis Right ureteral stone Post-op Diagnosis Same Procedure Performed Cystoscopy, right ureteroscopy with laser lithotripsy, stone extraction, right retrograde pyelogram and right ureteral stent placement Surgeon Jhony Oquendo MD Anesthesia General Description of Procedure Patient is brought to the operative suite where he was prepped draped in routine sterile fashion while in dorsal lithotomy position after the uneventful induction of a general LMA anesthetic. Cystoscopy was undertaken with a 19 F rigid cystoscope. There was minimal prostatic hyperplasia. There is no intravesical foreign body or neoplasm. He has a single orthotopic ureteral orifice bilaterally. A 0.035 in glidewire was advanced into the right renal pelvis. I had difficulty dilating with an 8 F 10 F dilator due to a narrow ureter. I had hoped to place ureteral access sheath but his ureter was too small for that. I did get a 7.5 F flexible ureteral scope 2 to stone. Using a 200 micron [place] laser fiber I dusted the stone. One 2-3 mm piece was left which I extracted with a 1.9 F disposable stone basket. Retrograde pyelogram was then obtained with a [place] catheter and a 4.8 F variable length stent was appropriately positioned with the proximal coil in the renal pelvis and distal coil in the bladder. Scopes wires removed. The patient tolerated the procedure well was taken recovery room good condition. Drains Yes Packing No Pathology Yes
[2025-02-27 08:30] VITALS: BP 96/57; PULSE 61; RESP 14; O2SAT 98
[2025-02-27 08:44] VITALS: BP 95/61; PULSE 68; RESP 18; O2SAT 100
[2025-02-27 08:46] VITALS: BP 108/58; PULSE 58
[2025-02-27 09:15] VITALS: BP 108/74; PULSE 56
== END 2025-02-27 09:53 | disposition home or self-care (01) ==
PROVIDERS: PCP Family Medicine; Visit Provider Urology
PROC: (CPT 52352; principal; 2025-02-27 07:30)
DX: N20.1 Calculus of ureter (principal)
CPT/HCPCS: 52356; 74176; 74420; 82365; 88300; J0690; C1758; C1769; C1894; C2617; J1100; J2003; J2250; J2405; J2704; J3010; J7120; Q9966